=== PATIENT | male | born 1970 | race Caucasian/White ===

== ENCOUNTER 2018-05-18 08:35 | Emergency (ER) | payer BC ==
[2018-05-18] MEDS ORDERED: Sodium Chloride 0.9% 10 ML Syringe FLUSH PRN (08:55)
--- NOTE | 2018-05-18 09:01 | EDM.PDOC ---
ED HPI GENERAL MEDICAL PROBLEM - General Chief Complaint: Chest Pain Stated Complaint: [facility] Time Seen by Provider: 05/18/18 08:46 Source of Information: Reports: Patient History Limitations: Reports: No Limitations - History of Present Illness INITIAL COMMENTS - FREE TEXT/NARRATIVE: The patient presents by [facility] for chest pain. 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 He then developed sharp right upper chest pain. He had some shortness of breath with it and he got dizzy. He also had some tingling in his arms. This only lasted about 5 to 10 minutes. EMS gave him aspirin. He has no pain now. This has never happened to him before. He has no history of heart disease, HTN, or diabetes. He was told his cholesterol was high at one time. He does smoke. He has been working many hours lately. 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 Onset: Sudden Duration: Minutes: Location: Reports: Chest Quality: Reports: Sharp Severity: Moderate Improves with: Reports: None Worsens with: Reports: None Context: Reports: Activity (He was at work) Associated Symptoms: Reports: Chest Pain - Related Data Allergies Allergy/AdvReac Type Severity Reaction Status Date / Time cranberries Allergy Hives Uncoded 05/18/18 08:42 Home Meds: Home Meds . [No Known Home Meds] 05/18/18 [History] Past Medical History - Past Surgical History Musculoskeletal Surgical History: Reports: Arthroscopic Knee Other Musculoskeletal Surgeries/Procedures:: bilateral knees Social & Family History - Tobacco Use Smoking Status *Q: Current Every Day Smoker Years of Tobacco use: 30 Packs/Tins Daily: 0.5 - Caffeine Use Caffeine Use: Reports: Coffee, Energy Drinks - Recreational Drug Use Recreational Drug Use: No ED ROS GENERAL - Review of Systems Review Of Systems: See Below Constitutional: Reports: No Symptoms HEENT: Reports: No Symptoms Respiratory: Reports: Shortness of Breath Cardiovascular: Reports: Chest Pain, Other (dizziness) Endocrine: Reports: No Symptoms GI/Abdominal: Reports: No Symptoms : Reports: No Symptoms Musculoskeletal: Reports: No Symptoms ED EXAM, GENERAL - Physical Exam Exam: See Below Exam Limited By: No Limitations General Appearance: Alert, No Apparent Distress Ears: Normal External Exam Nose: Normal Inspection Head: Atraumatic, Normocephalic Neck: Normal Inspection Respiratory/Chest: No Respiratory Distress, Lungs Clear, Normal Breath Sounds Cardiovascular: Regular Rate, Rhythm, No Edema, No Murmur GI/Abdominal: Soft, Non-Tender, No Organomegaly, No Mass Back Exam: Normal Inspection Extremities: Normal Inspection EKG INTERPRETATION EKG Date: 05/18/18 Time: 08:40 Rhythm: NSR Rate (Beats/Min): 64 [place]: Normal P-Wave: Present QRS: Normal ST-T: Normal QT: Normal EKG Interpretation Comments: Q waves in the inferior leads Course - Vital Signs Last Recorded V/S: Last Vital Signs Temp 97.6 F 05/18/18 08:42 Pulse 70 05/18/18 08:42 Resp 13 05/18/18 08:42 BP 118/78 05/18/18 08:42 Pulse Ox 98 05/18/18 08:42 - Orders/Labs/Meds Orders: Active Orders 24 hr Category Date Time Status Cardiac Monitoring [RC] . DIRECTED Care 05/18/18 08:55 Active EKG 12 Lead [EKG Documentation Completion] [RC] STAT Care 05/18/18 08:41 Active EKG Documentation Completion [RC] ASDIRECTED Care 05/18/18 08:41 Active Peripheral IV Care [RC] . DIRECTED Care 05/18/18 08:56 Active Chest 1V Frontal [CR] Stat Exams 05/18/18 08:56 Taken Sodium Chloride 0.9% [Saline Flush] Med 05/18/18 08:55 Active 10 ml FLUSH ASDIRECTED PRN Peripheral IV Insertion Adult [OM.PC] Stat Oth 05/18/18 08:55 Ordered EKG 12 Lead [EK] Stat Ther 05/18/18 08:41 Ordered Medication Orders Sodium Chloride (Saline Flush) 10 ml FLUSH ASDIRECTED PRN PRN Reason: Keep Vein Open Last Admin: 05/18/18 09:00 Dose: 10 ml Labs: Laboratory Tests 05/18/18 05/18/18 Range/Units 09:18 09:18 WBC 12.51 H (4.23-9.07) K/mm3 RBC 5.06 (4.63-6.08) M/mm3 Hgb 15.4 (13.7-17.5) gm/L Hct 44.7 (40.1-51.0) % MCV 88.3 (79.0-92.2) fl MCH 30.4 (25.7-32.2) pg MCHC 34.5 (32.2-35.5) g/dl RDW Std Deviation 46.9 H (35.1-43.9) fL Plt Count 275 (163-337) K/mm3 MPV 9.6 (9.4-12.3) fl Neut % (Auto) 54.3 (34.0-67.9) % Lymph % (Auto) 37.0 (21.8-53.1) % Reeves % (Auto) 7.5 (5.3-12.2) % Eos % (Auto) 0.6 L (0.8-7.0) Baso % (Auto) 0.4 (0.1-1.2) % Neut # (Auto) 6.80 H (1.78-5.38) K/mm3 Lymph # (Auto) 4.63 H (1.32-3.57) K/mm3 Reeves # (Auto) 0.94 H (0.30-0.82) K/mm3 Eos # (Auto) 0.07 (0.04-0.54) K/mm3 Baso # (Auto) 0.05 (0.01-0.08) K/mm3 Sodium 136 (136-145) mEq/L Potassium 4.3 (3.5-5.1) mEq/L Chloride 103 (98-107) mEq/L Carbon Dioxide 24 (21-32) mEq/L Anion Gap 13.3 (5-15) BUN 10 (7-18) mg/dL Creatinine 1.0 (0.7-1.3) mg/dL Est Cr Clr Drug Dosing 116.33 mL/min Estimated GFR (MDRD) > 60 (>60) mL/min BUN/Creatinine Ratio 10.0 L (14-18) Glucose 104 (74-106) mg/dL Calcium 8.9 (8.5-10.1) mg/dL Total Bilirubin 0.4 (0.2-1.0) mg/dL AST 26 (15-37) U/L ALT 35 (16-63) U/L Alkaline Phosphatase 127 H (46-116) U/L Troponin I < 0.017 (0.00-0.056) ng/mL Total Protein 7.7 (6.4-8.2) g/dl Albumin 4.2 (3.4-5.0) g/dl Globulin 3.5 gm/dL Albumin/Globulin Ratio 1.2 (1-2) Meds: Medications Generic Name Dose Route Start Last Admin Trade Name Kev PRN Reason Stop Dose Admin Sodium Chloride 10 ml 05/18/18 08:55 05/18/18 09:00 Saline Flush FLUSH 10 ml ASDIRECTED PRN Administration Keep Vein Open - Re-Assessments/Exams Free Text/Narrative Re-Assessment/Exam: 05/18/18 09:04 I ordered an IV saline lock, EKG, CXR and labs. The patient was given aspirin by EMS. He is currently pain free. 05/18/18 11:10 His WBC was a little elevated at 12.51. His CMP looks good. His troponin was negative. He feels better. I will discharge him home. Departure - Departure Time of Disposition: 11:20 Disposition: Home, Self-Care 01 Condition: Good Clinical Impression: Atypical chest pain Referrals: Ute Mckeon MD [Primary Care Provider] - 1 Week Forms: ED Department Discharge Additional Instructions: Go home and rest. Follow up with your doctor. Please return if you are worse. - My Orders Last 24 Hours: My Active Orders 05/18/18 08:41 EKG 12 Lead [EKG Documentation Completion] [RC] STAT EKG Documentation Completion [RC] ASDIRECTED EKG 12 Lead [EK] Stat 05/18/18 08:55 Cardiac Monitoring [RC] . DIRECTED Sodium Chloride 0.9% [Saline Flush] 10 ml FLUSH ASDIRECTED PRN Peripheral IV Insertion Adult [OM.PC] Stat 05/18/18 08:56 Peripheral IV Care [RC] . DIRECTED Chest 1V Frontal [CR] Stat - Assessment/Plan Last 24 Hours: My Active Orders 05/18/18 08:41 EKG 12 Lead [EKG Documentation Completion] [RC] STAT EKG Documentation Completion [RC] ASDIRECTED EKG 12 Lead [EK] Stat 05/18/18 08:55 Cardiac Monitoring [RC] . DIRECTED Sodium Chloride 0.9% [Saline Flush] 10 ml FLUSH ASDIRECTED PRN Peripheral IV Insertion Adult [OM.PC] Stat 05/18/18 08:56 Peripheral IV Care [RC] . DIRECTED Chest 1V Frontal [CR] Stat
--- NOTE | 2018-05-20 08:30 | CR ---
Chest: Portable view of the chest was obtained. Comparison: No prior chest x-ray. Heart size and mediastinum are within normal limits for portable technique. Lungs are clear with no acute parenchymal densities. Bony structures are grossly intact. Impression: 1. Nothing acute is seen on portable chest x-ray. Diagnostic code #1
== END 2018-05-18 11:35 | disposition home or self-care (01) ==
LOC: JD.ED 08:35 → SUPCPDRO 08:35 → JD.ED 11:35
DX: R07.89 Other chest pain (principal); F17.210 Nicotine dependence, cigarettes, uncomplicated; Z91.018 Allergy to other foods
CPT/HCPCS: 36415; 71045; 80053; 84484; 85025; 93005; 99285; J7050; 93010; 99284-25

== ENCOUNTER 2021-08-22 02:02 | Emergency (ER) | payer BC ==
[2021-08-22] MEDS ORDERED: Nitroglycerin 0.4 MG Tab.SL SL PRN (02:14)
[2021-08-22] MEDS ORDERED: Aspirin 81 MG Tab.Chew PO ONE (02:14)
[2021-08-22] MEDS ORDERED: Sodium Chloride 0.9% 1,000 ML IV SCH (02:15)
--- NOTE | 2021-08-22 02:24 | EDM.PDOC ---
ED HPI GENERAL MEDICAL PROBLEM - General Chief Complaint: Chest Pain Stated Complaint: HEART ATTACK Time Seen by Provider: 08/22/21 02:02 - History of Present Illness INITIAL COMMENTS - FREE TEXT/NARRATIVE: 51-year-old male presents the emergency room with chest discomfort and left arm pain. Patient awoke about an hour ago with this severe pain down his left arm. The pain is somewhat subsided and is fairly mild at this point. The chest discomfort was fairly mild he has none at this time. He has had shortness of breath. No associated nausea or vomiting. Patient smokes roughly a pack a day. Patient had a stress test done 3 or 4 years ago that was reported to him as normal. 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 He has no family history of coronary artery disease. Left Chest Pain Score (Numeric/FACES): 2 - Related Data Allergies Allergy/AdvReac Type Severity Reaction Status Date / Time cranberries Allergy Severe Hives Uncoded 08/22/21 02:11 Home Meds: Home Meds . [No Known Home Meds] 05/18/18 [History] Past Medical History Cardiovascular History: Reports: Hypertension Musculoskeletal History: Reports: Fracture Endocrine/Metabolic History: Reports: Obesity/BMI 30+ - Past Surgical History Musculoskeletal Surgical History: Reports: Arthroscopic Knee, Other (See Below) Other Musculoskeletal Surgeries/Procedures:: bilateral knees, leg fx with rods placed Social & Family History - Tobacco Use Tobacco Use Status *Q: Current Every Day Tobacco User Years of Tobacco use: 20 Packs/Tins Daily: 0.5 - Caffeine Use Caffeine Use: Reports: Coffee - Recreational Drug Use Recreational Drug Use: No ED ROS GENERAL - Review of Systems Review Of Systems: See Below Constitutional: Reports: No Symptoms HEENT: Reports: No Symptoms Respiratory: Reports: No Symptoms Cardiovascular: Reports: Chest Pain Endocrine: Reports: No Symptoms GI/Abdominal: Reports: No Symptoms : Reports: No Symptoms Musculoskeletal: Reports: No Symptoms Skin: Reports: No Symptoms Neurological: Reports: No Symptoms ED EXAM, GENERAL - Physical Exam Exam: See Below Exam Limited By: No Limitations General Appearance: Alert, No Apparent Distress Head: Atraumatic, Normocephalic Neck: Normal Inspection, Supple, Non-Tender, Full Range of Motion Respiratory/Chest: No Respiratory Distress, Lungs Clear, Normal Breath Sounds Cardiovascular: Regular Rate, Rhythm, No Edema, No Murmur GI/Abdominal: Normal Bowel Sounds, Soft, Non-Tender, Other (Obese) Back Exam: Normal Inspection Extremities: Normal Inspection, No Pedal Edema #1 Interpretation EKG Date: 08/22/21 Rhythm: NSR Rate (Beats/Min): 69 [place]: Normal P-Wave: Present QRS: Other (Q waves in aVF borderline in lead III) ST-T: Normal QT: Normal Comparison: No Change (No significant change noted from May 18, 2018) EKG Interpretation Comments: Abnormal EKG Course - Vital Signs Last Recorded V/S: Last Vital Signs Temp 35.8 C L 08/22/21 02:07 Pulse 71 08/22/21 02:07 Resp 20 08/22/21 02:07 BP 145/75 H 08/22/21 02:36 Pulse Ox 99 08/22/21 02:07 - Orders/Labs/Meds Orders: Active Orders 24 hr Category Date Time Status Chest 1V Frontal [CR] Stat Exams 08/22/21 02:15 Taken Nitroglycerin [Nitrostat] Med 08/22/21 02:14 Active 0.4 mg SL Q5M PRN Sodium Chloride 0.9% [Normal Saline] 1,000 ml Med 08/22/21 02:15 Active IV ASDIRECTED Medication Orders Sodium Chloride (Normal Saline) 1,000 mls @ 50 mls/hr IV ASDIRECTED ERICKA Last Admin: 08/22/21 02:37 Dose: 50 mls/hr Documented by: JESÚS Nitroglycerin (Nitroglycerin 0.4 Mg Tab.Sl) 0.4 mg SL Q5M PRN PRN Reason: Chest Pain Last Admin: 08/22/21 02:36 Dose: 0.4 mg Documented by: JESÚS Labs: Laboratory Tests 08/22/21 08/22/21 08/22/21 Range/Units 02:09 02:09 02:09 WBC 14.00 H (4.23-9.07) K/mm3 RBC 4.87 (4.63-6.08) M/mm3 Hgb 15.2 (13.7-17.5) gm/dl Hct 44.4 (40.1-51.0) % MCV 91.2 (79.0-92.2) fl MCH 31.2 (25.7-32.2) pg MCHC 34.2 (32.2-35.5) g/dl RDW Std Deviation 47.6 H (35.1-43.9) fL Plt Count 297 (163-337) K/mm3 MPV 9.6 (9.4-12.3) fl Neut % (Auto) 45.4 (34.0-67.9) % Lymph % (Auto) 43.3 (21.8-53.1) % [place] % (Auto) 9.8 (5.3-12.2) % Eos % (Auto) 1.1 (0.8-7.0) Baso % (Auto) 0.2 (0.1-1.2) % Neut # (Auto) 6.36 H (1.78-5.38) K/mm3 Lymph # (Auto) 6.06 H (1.32-3.57) K/mm3 [place] # (Auto) 1.37 H (0.30-0.82) K/mm3 Eos # (Auto) 0.15 (0.04-0.54) K/mm3 Baso # (Auto) 0.03 (0.01-0.08) K/mm3 Manual Slide Review Normal smear PT 10.0 (9.7-12.0) SECONDS INR < 0.93 APTT 26.5 (21.7-31.4) SECONDS Sodium 136 (136-145) mEq/L Potassium 3.5 (3.5-5.1) mEq/L Chloride 104 (98-107) mEq/L Carbon Dioxide 24 (21-32) mEq/L Anion Gap 11.5 (5-15) BUN 16 (7-18) mg/dL Creatinine 1.0 (0.7-1.3) mg/dL Est Cr Clr Drug Dosing 109.71 mL/min Estimated GFR (MDRD) > 60 (>60) mL/min BUN/Creatinine Ratio 16.0 (14-18) Glucose 139 H (70-99) mg/dL Calcium 8.4 L (8.5-10.1) mg/dL Total Bilirubin 0.3 (0.2-1.0) mg/dL AST 19 (15-37) U/L ALT 39 (16-63) U/L Alkaline Phosphatase 119 H (46-116) U/L Troponin I < 0.017 (0.00-0.056) ng/mL Total Protein 7.5 (6.4-8.2) g/dl Albumin 3.9 (3.4-5.0) g/dl Globulin 3.6 gm/dL Albumin/Globulin Ratio 1.1 (1-2) SARS-CoV-2 RNA (TRACY) (NEGATIVE) 08/22/21 08/22/21 Range/Units 02:19 04:03 WBC (4.23-9.07) K/mm3 RBC (4.63-6.08) M/mm3 Hgb (13.7-17.5) gm/dl Hct (40.1-51.0) % MCV (79.0-92.2) fl MCH (25.7-32.2) pg MCHC (32.2-35.5) g/dl RDW Std Deviation (35.1-43.9) fL Plt Count (163-337) K/mm3 MPV (9.4-12.3) fl Neut % (Auto) (34.0-67.9) % Lymph % (Auto) (21.8-53.1) % [place] % (Auto) (5.3-12.2) % Eos % (Auto) (0.8-7.0) Baso % (Auto) (0.1-1.2) % Neut # (Auto) (1.78-5.38) K/mm3 Lymph # (Auto) (1.32-3.57) K/mm3 [place] # (Auto) (0.30-0.82) K/mm3 Eos # (Auto) (0.04-0.54) K/mm3 Baso # (Auto) (0.01-0.08) K/mm3 Manual Slide Review PT (9.7-12.0) SECONDS INR APTT (21.7-31.4) SECONDS Sodium (136-145) mEq/L Potassium (3.5-5.1) mEq/L Chloride (98-107) mEq/L Carbon Dioxide (21-32) mEq/L Anion Gap (5-15) BUN (7-18) mg/dL Creatinine (0.7-1.3) mg/dL Est Cr Clr Drug Dosing mL/min Estimated GFR (MDRD) (>60) mL/min BUN/Creatinine Ratio (14-18) Glucose (70-99) mg/dL Calcium (8.5-10.1) mg/dL Total Bilirubin (0.2-1.0) mg/dL AST (15-37) U/L ALT (16-63) U/L Alkaline Phosphatase (46-116) U/L Troponin I < 0.017 (0.00-0.056) ng/mL Total Protein (6.4-8.2) g/dl Albumin (3.4-5.0) g/dl Globulin gm/dL Albumin/Globulin Ratio (1-2) SARS-CoV-2 RNA (TRACY) Negative (NEGATIVE) Meds: Medications Generic Name Dose Route Start Last Admin Trade Name Freq PRN Reason Stop Dose Admin Sodium Chloride 1,000 mls @ 50 mls/hr 08/22/21 02:15 08/22/21 02:37 Normal Saline IV 50 mls/hr ASDIRECTED ERICKA Administration Nitroglycerin 0.4 mg 08/22/21 02:14 08/22/21 02:36 Nitroglycerin 0.4 Mg Tab.Sl SL 0.4 mg Q5M PRN Administration Chest Pain Discontinued Medications Generic Name Dose Route Start Last Admin Trade Name Freq PRN Reason Stop Dose Admin Aspirin 324 mg 08/22/21 02:14 08/22/21 02:36 Aspirin 81 Mg Tab.Chew PO 08/22/21 02:15 324 mg ONETIME ONE Administration - Re-Assessments/Exams Free Text/Narrative Re-Assessment/Exam: 08/22/21 03:43 The patient's work-up is negative his chest pain is absolutely gone. He did get a single nitroglycerin however his pain was improving at that time. Check a s econd troponin very shortly. Unless his troponin turns up positive his heart score is 3 one-point for his age 1 point for a moderate suspicion history and one point for risk factors namely obesity and smoking we have discussed the implications of this and he would like for us to recheck a troponin at the appropriate time. 08/22/21 04:50 Second troponin is also below our detectable levels. Patient would like to be discharged home Departure - Departure Time of Disposition: 04:52 Disposition: Home, Self-Care 01 Clinical Impression: Left arm pain, Chest pain Referrals: Kojo Cristina MD [Primary Care Provider] - Forms: ED Department Discharge Additional Instructions: Return to the emergency room with any questions problems or worsening symptoms. Follow-up with your regular healthcare provider in the next week or so and discuss if any further testing needs to take place. Also discuss if you should be taking a daily aspirin. Please quit smoking. Sepsis Event Note (ED) - Evaluation Sepsis Screening Result: No Definite Risk - Focused Exam Vital Signs: Vital Signs Temp Pulse Resp BP BP Pulse Ox 08/22/21 02:36 145/75 H 08/22/21 02:07 35.8 C L 71 20 151/97 H 99 - My Orders Last 24 Hours: My Active Orders 08/22/21 02:14 Nitroglycerin [Nitrostat] 0.4 mg SL Q5M PRN 08/22/21 02:15 Chest 1V Frontal [CR] Stat Sodium Chloride 0.9% [Normal Saline] 1,000 ml IV ASDIRECTED - Assessment/Plan Last 24 Hours: My Active Orders 08/22/21 02:14 Nitroglycerin [Nitrostat] 0.4 mg SL Q5M PRN 08/22/21 02:15 Chest 1V Frontal [CR] Stat Sodium Chloride 0.9% [Normal Saline] 1,000 ml IV ASDIRECTED
--- NOTE | 2021-08-22 08:26 | CR ---
Chest: Portable view of the chest was obtained. Comparison: Prior chest x-ray of 05/18/18. Heart size and mediastinum are normal. Lung markings are slightly increased which appear to be chronic. No acute parenchymal change is seen. No acute osseous abnormality is appreciated. Impression: 1. Nothing acute is seen on portable chest x-ray. Diagnostic code #1
== END 2021-08-22 05:13 | disposition home or self-care (01) ==
LOC: JD.ED 02:02
DX: R07.89 Other chest pain (principal); M79.602 Pain in left arm; I10 Essential (primary) hypertension; R94.31 Abnormal electrocardiogram [ECG] [EKG]; E66.9 Obesity, unspecified; Z68.35 Body mass index [BMI] 35.0-35.9, adult; Z72.0 Tobacco use; Z91.018 Allergy to other foods; Z20.822 Contact with and (suspected) exposure to COVID-19
CPT/HCPCS: 36415; 71045; 80053; 84484; 85025; 85610; 85730; 87635; 99285; A9270; J7030; U0002

== ENCOUNTER 2022-01-13 12:42 | Emergency (ER) | payer BC ==
[2022-01-13 14:18] LABS: CORONAVIRUS COVID-19 NAA POSITIVE (NEGATIVE)
== END 2022-01-13 15:35 | disposition home or self-care (01) ==
LOC: JD.ED 12:42
DX: U07.1 COVID-19 (principal); R42 Dizziness and giddiness; I10 Essential (primary) hypertension; I45.10 Unspecified right bundle-branch block; E66.9 Obesity, unspecified; Z68.36 Body mass index [BMI] 36.0-36.9, adult; Z87.891 Personal history of nicotine dependence; Z91.018 Allergy to other foods
CPT/HCPCS: 0240U; 36415; 36600; 70450; 71045; 80053; 82375; 82803; 82947; 84484; 85025; 85379; 86140; 93005; 99284; 93010; 99285

== ENCOUNTER 2022-01-30 10:45 | Emergency (ER) | payer OTHER, BC ==
[2022-01-30] MEDS ORDERED: LORazepam 1 MG Tab PO ONE (11:38)
[2022-01-30] MEDS ORDERED: Albuterol/Ipratropium 3.0-0.5 MG/3 ML Neb Soln NEB ONE (11:39)
[2022-01-30] MEDS ORDERED: Aspirin 81 MG Tab.Chew PO ONE (12:10)
[2022-01-30] MEDS ORDERED: LORazepam 2 MG/ML SDV IVPUSH ONE (12:11)
== END 2022-01-30 14:00 | disposition home or self-care (01) ==
LOC: JD.ED 10:45
DX: F45.8 Other somatoform disorders (principal); I10 Essential (primary) hypertension; E66.9 Obesity, unspecified; Z87.891 Personal history of nicotine dependence; Z91.048 Other nonmedicinal substance allergy status; Z68.35 Body mass index [BMI] 35.0-35.9, adult
CPT/HCPCS: 36415; 36600; 71046; 80053; 82375; 82803; 84484; 85025; 85379; 86140; 93005; 94640; 99284; A9270; J7620-GY

== ENCOUNTER 2022-02-05 09:07 | Emergency (ER) | payer OTHER, BC ==
[2022-02-05] MEDS ORDERED: LORazepam 2 MG/ML SDV IVPUSH ONE (09:39)
[2022-02-05] MEDS ORDERED: Metoclopramide 10 MG/2 ML SDV IVPUSH ONE (09:40)
[2022-02-05] MEDS ORDERED: HYDROmorphone 0.5 MG/0.5 ML Syringe IVPUSH ONE ×2 (09:40→12:19)
[2022-02-05] MEDS ORDERED: Dextrose 5%-0.9% NaCl 1,000 ML IV SCH (09:45)
[2022-02-05] MEDS ORDERED: Aspirin 81 MG Tab.Chew PO ONE (09:58)
[2022-02-05] MEDS ORDERED: Sodium Chloride 0.9% 10 ML Syringe FLUSH ONE (11:39)
[2022-02-05] MEDS ORDERED: Iopamidol 612 MG/ML 100 ML Bottle IVPUSH ONE (11:39)
== END 2022-02-05 14:05 | disposition home or self-care (01) ==
LOC: JD.ED 09:07
DX: R09.1 Pleurisy (principal); F41.0 Panic disorder [episodic paroxysmal anxiety]; I10 Essential (primary) hypertension; K20.90 Esophagitis, unspecified without bleeding; J45.909 Unspecified asthma, uncomplicated; E66.9 Obesity, unspecified; Z86.16 Personal history of COVID-19; Z91.048 Other nonmedicinal substance allergy status; Z87.891 Personal history of nicotine dependence; Z68.36 Body mass index [BMI] 36.0-36.9, adult
CPT/HCPCS: 36415; 71045; 71260; 80053; 80307; 83735; 83880; 84484; 85025; 85379; 85610; 86140; 93005; 96374; 96375; 96376; 99285; A9270; J1170; J2060; J2765; J7042; Q9967; 93010

== ENCOUNTER 2022-09-18 08:47 | Emergency (ER) | payer BC ==
[2022-09-18] MEDS: Sodium Chloride 0.9% 10 ML Syringe FLUSH PRN ×2 (09:03→11:59)
[2022-09-18] MEDS ORDERED: HYDROmorphone 1 MG/ML Syringe IVPUSH ONE (10:16)
[2022-09-18] MEDS ORDERED: Ketorolac 30 MG/ML SDV IVPUSH ONE (11:13)
[2022-09-18] MEDS ORDERED: Sodium Chloride 0.9% 10 ML Syringe FLUSH PRN (11:26)
[2022-09-18] MEDS ORDERED: Iopamidol 612 MG/ML 100 ML Bottle IVPUSH ONE (11:26)
[2022-09-18] MEDS ORDERED: Iopamidol 612 MG/ML 50 ML SDV IVPUSH ONE (11:26)
[2022-09-18] MEDS ORDERED: Sodium Chloride 0.9% 45 ML IV SCH (11:30)
[2022-09-18] MEDS ORDERED: Iopamidol 755 Mg/ML 100 ML Bottle IVPUSH ONE (11:42)
== END 2022-09-18 13:18 | disposition home or self-care (01) ==
LOC: JD.ED 08:47
DX: R07.89 Other chest pain (principal); J45.909 Unspecified asthma, uncomplicated; I10 Essential (primary) hypertension; E66.9 Obesity, unspecified; Z68.36 Body mass index [BMI] 36.0-36.9, adult; Z91.018 Allergy to other foods; Z79.899 Other long term (current) drug therapy; Z86.16 Personal history of COVID-19; Z87.891 Personal history of nicotine dependence
CPT/HCPCS: 36415; 71045; 71275; 80053; 84484; 85025; 85379; 93005; 96374; 96375; 99285; J1170; J1885; J3490; Q9967

== ENCOUNTER 2024-06-15 12:44 | Emergency (ER) | payer BC ==
[2024-06-15 14:57] LABS: BASOPHILS PERCENT AUTO 0.5 % (0.0-1.0); EOSINOPHILS ABSOLUTE AUTO 0.1 K/mm3 (0.0-0.4); EOSINOPHILS PERCENT AUTO 1.2 % (0.0-6.0); HEMATOCRIT 42.5 % (42.0-52.0); HEMOGLOBIN 14.6 gm/dl (14.0-18.0); IMMATURE GRAN ABSOLUTE AUTO 0.01 K/mm3 (0.00-0.05); IMMATURE GRAN PERCENT AUTO 0.1 % (0.0-0.4); LYMPHOCYTES ABSOLUTE AUTO 3.4 K/mm3 (1.0-4.8); LYMPHOCYTES PERCENT AUTO 41.4 % (24.0-44.0); MEAN CORPUSCULAR HEMOGLOBIN 31.3 pg (28.0-32.0); MEAN CORPUSCULAR HGB CONC 34.4 g/dl (32.0-36.0); MEAN PLATELET VOLUME 9.2 fl (9.4-12.4); MONOCYTES ABSOLUTE AUTO 0.6 K/mm3 (0.0-0.8); MONOCYTES PERCENT AUTO 7.9 % (0.0-8.0); NEUTROPHILS PERCENT AUTO 48.9 % (41.0-71.0); PLATELET COUNT,PLT 250 K/mm3 (150-400); RED BLOOD CELL COUNT 4.67 M/mm3 (4.52-5.90)
[2024-06-15 15:19] LABS: A/G RATIO 1.3 (1-2); ALBUMIN 4.1 g/dl (3.4-5.0); ANION GAP 13.2 (5-15); BILIRUBIN TOTAL 0.4 mg/dL (0.2-1.0); BUN/CREATININE RATIO 12.2 (14-18); CALCIUM 8.8 mg/dL (8.5-10.1); CREATININE 0.9 mg/dL (0.7-1.3); EST CRCL DRUG DOSING (CG) 117.88 mL/min; POTASSIUM,K 4.2 mEq/L (3.5-5.1); PROTEIN TOTAL,TP 7.3 g/dl (6.4-8.2)
== END 2024-06-15 16:03 | disposition home or self-care (01) ==
LOC: JD.ED 12:44
DX: Z77.098 Contact with and (suspected) exposure to other hazardous, chiefly nonmedicinal, chemicals (principal); I10 Essential (primary) hypertension; J45.909 Unspecified asthma, uncomplicated; F17.210 Nicotine dependence, cigarettes, uncomplicated; E66.9 Obesity, unspecified; Z68.35 Body mass index [BMI] 35.0-35.9, adult; Z86.16 Personal history of COVID-19; Z88.5 Allergy status to narcotic agent; Z91.018 Allergy to other foods
CPT/HCPCS: 36415; 80053; 82375; 85025; 99283; 99284

== ENCOUNTER 2024-08-12 10:32 | Day surgery (SDC) | payer BC ==
[2024-08-12] MEDS ORDERED: Propofol 200 MG/20 ML SDV ONE ×5 (10:54→12:12)
[2024-08-12] MEDS ORDERED: Midazolam 1 MG/ML 2 ML SDV ONE (10:54)
[2024-08-12] MEDS ORDERED: fentaNYL 250 MCG/5 ML SDV ONE (10:54)
[2024-08-12] MEDS ORDERED: Ketamine 200 MG/20 ML MDV ONE (10:54)
[2024-08-12] MEDS ORDERED: Lidocaine 1% PF 2 ML SDV ONE ×2 (10:55)
[2024-08-12] MEDS ORDERED: Lidocaine 1% 4 ML ONE (10:55)
[2024-08-12] MEDS ORDERED: Rocuronium 50 MG/5 ML Vial ONE (10:55)
[2024-08-12] MEDS: Lactated Ringers 1,000 ML IV SCH (11:05)
[2024-08-12] MEDS ORDERED: ceFAZolin 2 GM Vial ONE (11:30)
[2024-08-12] MEDS: Bupivacaine 0.5% 30 ML SDV ONE (11:37)
[2024-08-12] MEDS: EPINEPHrine 1 MG/ML SDV ONE (11:37)
[2024-08-12] MEDS ORDERED: Dexamethasone 4 MG/ML 5 ML MDV ONE (11:51)
[2024-08-12] MEDS ORDERED: Ondansetron 4 MG/2 ML SDV ONE (11:51)
[2024-08-12] MEDS ORDERED: Sugammadex Sodium 200 MG/2 ML VIAL IV ONE ×2 (12:10→12:25)
[2024-08-12] MEDS: fentaNYL 100 MCG/2 ML SDV IVPUSH PRN (13:05)
[2024-08-12] MEDS: Ketorolac 30 MG/ML SDV IVPUSH ONE (13:25)
[2024-08-12] MEDS: traMADol 50 MG Tab PO SCH (13:48)
[2024-08-12] MEDS: oxyCODONE 5 MG Tab PO ONE (15:07)
== END 2024-08-12 15:45 | disposition home or self-care (01) ==
LOC: JD.SDS 10:32
PROVIDERS: ATTEND Surgery
DX: K42.9 Umbilical hernia without obstruction or gangrene (principal); K21.9 Gastro-esophageal reflux disease without esophagitis; I10 Essential (primary) hypertension; G47.33 Obstructive sleep apnea (adult) (pediatric); E66.9 Obesity, unspecified; F17.210 Nicotine dependence, cigarettes, uncomplicated; Z68.34 Body mass index [BMI] 34.0-34.9, adult; Z91.018 Allergy to other foods; Z88.8 Allergy status to other drugs, medicaments and biological substances; Z79.899 Other long term (current) drug therapy
CPT/HCPCS: 49591; A9270; C1781; J0171; J0665; J0690; J1100; J1885; J2250; J2405; J2704; J3010; J3490; J7120; 00752

== ENCOUNTER 2024-10-22 06:03 | Day surgery (SDC) | payer BC ==
[2024-10-22] MEDS ORDERED: Sodium Chloride 0.9% 10 ML Syringe FLUSH PRN (06:24)
[2024-10-22] MEDS: Lactated Ringers 1,000 ML IV SCH (06:35)
[2024-10-22] MEDS ORDERED: Lidocaine 1% 5 ML VIAL ONE (07:03)
[2024-10-22] MEDS ORDERED: Ondansetron 4 MG/2 ML SDV ONE (07:03)
[2024-10-22] MEDS ORDERED: Dexamethasone 4 MG/ML 5 ML MDV ONE (07:03)
[2024-10-22] MEDS ORDERED: Propofol 200 MG/20 ML SDV ONE ×3 (07:03→07:43)
[2024-10-22] MEDS ORDERED: fentaNYL 100 MCG/2 ML SDV ONE (07:03)
[2024-10-22] MEDS ORDERED: dexmedeTOMIDine HCl 200 MCG/2 ML SDV ONE (07:30)
[2024-10-22] MEDS: Bupivacaine 0.25% 10 ML SDV ONE (09:00)
[2024-10-22] MEDS ORDERED: Sodium Chloride 0.9% 10 ML Syringe FLUSH SCH (09:00)
== END 2024-10-22 09:05 | disposition home or self-care (01) ==
LOC: JD.SDS 06:03
PROVIDERS: ATTEND Surgery
DX: Z12.11 Encounter for screening for malignant neoplasm of colon (principal); K57.30 Diverticulosis of large intestine without perforation or abscess without bleeding; D12.3 Benign neoplasm of transverse colon; D12.5 Benign neoplasm of sigmoid colon; K62.1 Rectal polyp; C77.0 Secondary and unspecified malignant neoplasm of lymph nodes of head, face and neck; C80.1 Malignant (primary) neoplasm, unspecified; K63.5 Polyp of colon; J45.909 Unspecified asthma, uncomplicated; I10 Essential (primary) hypertension; K21.9 Gastro-esophageal reflux disease without esophagitis; Z79.899 Other long term (current) drug therapy; Z88.8 Allergy status to other drugs, medicaments and biological substances
CPT/HCPCS: 38500; 45380; 45385; J0665; J1100; J2405; J2704; J3010; J7120; 00811; J3490

== ENCOUNTER 2024-11-03 13:05 | Day surgery (SDC) | payer BC ==
[2024-11-03] MEDS ORDERED: Propofol 200 MG/20 ML SDV ONE (13:30)
[2024-11-03] MEDS: Lactated Ringers 1,000 ML IV SCH (13:30)
== END 2024-11-03 15:55 | disposition home or self-care (01) ==
LOC: JD.SDS 13:05
PROVIDERS: ATTEND Surgery
DX: D02.0 Carcinoma in situ of larynx (principal); K29.80 Duodenitis without bleeding; I10 Essential (primary) hypertension; K21.9 Gastro-esophageal reflux disease without esophagitis; F17.210 Nicotine dependence, cigarettes, uncomplicated; Z88.8 Allergy status to other drugs, medicaments and biological substances; Z91.018 Allergy to other foods; Z79.899 Other long term (current) drug therapy
CPT/HCPCS: 43239; J2704; J7120; 00731

== ENCOUNTER 2025-01-07 20:22 | Emergency (ER) | payer BC ==
[2025-01-07 21:52] LABS: BASOPHILS PERCENT AUTO 0.2 % (0.0-1.0); EOSINOPHILS PERCENT AUTO 0.7 % (0.0-6.0); HEMATOCRIT 37.7 % (42.0-52.0); HEMOGLOBIN 13.1 gm/dl (14.0-18.0); IMMATURE GRAN ABSOLUTE AUTO 0.01 K/mm3 (0.00-0.05); IMMATURE GRAN PERCENT AUTO 0.2 % (0.0-0.4); LYMPHOCYTES PERCENT AUTO 17.9 % (24.0-44.0); MEAN CORPUSCULAR HEMOGLOBIN 30.8 pg (28.0-32.0); MEAN CORPUSCULAR HGB CONC 34.7 g/dl (32.0-36.0); MEAN CORPUSCULAR VOLUME 88.7 fl (83.0-99.0); MEAN PLATELET VOLUME 8.4 fl (9.4-12.4); MONOCYTES ABSOLUTE AUTO 0.6 K/mm3 (0.0-0.8); MONOCYTES PERCENT AUTO 10.9 % (0.0-8.0); NEUTROPHILS PERCENT AUTO 70.1 % (41.0-71.0); PLATELET COUNT,PLT 252 K/mm3 (150-400); RED BLOOD CELL COUNT 4.25 M/mm3 (4.52-5.90)
[2025-01-07] MEDS: Sodium Chloride 0.9% 2,000 ML IV ONE (21:54)
[2025-01-07 22:16] LABS: A/G RATIO 1.1 (1-2); ALBUMIN 3.8 g/dl (3.4-5.0); ANION GAP 10.8 (5-15); BILIRUBIN TOTAL 0.5 mg/dL (0.2-1.0); BUN/CREATININE RATIO 13.3 (14-18); CALCIUM 8.6 mg/dL (8.5-10.1); CREATININE 0.9 mg/dL (0.7-1.3); EST CRCL DRUG DOSING (CG) 117.88 mL/min; MAGNESIUM 1.6 mg/dL (1.8-2.4); POTASSIUM,K 3.8 mEq/L (3.5-5.1); PROTEIN TOTAL,TP 7.2 g/dl (6.4-8.2)
[2025-01-08] MEDS: Ondansetron 4 MG/2 ML SDV IVPUSH ONE (00:25)
[2025-01-08] MEDS: Acetaminophen/HYDROcodone 108-2.5 MG/5 ML Soln 15 ML UD Cup PO ONE (00:25)
[2025-01-08] MEDS: Ketorolac 30 MG/ML SDV IVPUSH ONE (01:46)
[2025-01-08] MEDS: diphenhydrAMINE 50 MG/ML SDV IVPUSH ONE (01:46)
== END 2025-01-08 01:40 | disposition home or self-care (01) ==
LOC: JD.ED 20:22
DX: R20.2 Paresthesia of skin (principal); E83.42 Hypomagnesemia; I10 Essential (primary) hypertension; J45.909 Unspecified asthma, uncomplicated; E66.9 Obesity, unspecified; Z68.36 Body mass index [BMI] 36.0-36.9, adult; Z86.16 Personal history of COVID-19; Z88.5 Allergy status to narcotic agent; Z91.018 Allergy to other foods; Z79.899 Other long term (current) drug therapy
CPT/HCPCS: 36415; 71045; 80053; 82607; 83540; 83605; 83735; 84484; 85025; 87428; 93005; 96361; 96365; 96375; 99284; A9270; J1200; J1885; J2405; J3475; J7030

== ENCOUNTER 2025-01-08 10:05 | Emergency (ER) | payer BC | END 2025-01-08 12:45 | disposition home or self-care (01) | LOC: JD.ED 10:05 | DX: T28.0XXA Burn of mouth and pharynx, initial encounter (principal); C44.92 Squamous cell carcinoma of skin, unspecified; R59.0 Localized enlarged lymph nodes; I10 Essential (primary) hypertension; E78.00 Pure hypercholesterolemia, unspecified; E66.9 Obesity, unspecified; Z86.16 Personal history of COVID-19; Z79.899 Other long term (current) drug therapy; Y84.2 Radiological procedure and radiotherapy as the cause of abnormal reaction of the patient, or of later complication, without mention of misadventure at the time of the procedure; Z88.5 Allergy status to narcotic agent; Z91.018 Allergy to other foods; Z68.36 Body mass index [BMI] 36.0-36.9, adult | CPT/HCPCS: 99282 ==

== ENCOUNTER 2025-04-22 07:34 | Observation (INO) | payer BC ==
[2025-04-22 07:59] LABS: BASOPHILS PERCENT AUTO 0.2 % (0.0-1.0); EOSINOPHILS PERCENT AUTO 0.7 % (0.0-6.0); HEMATOCRIT 32.7 % (42.0-52.0); HEMOGLOBIN 11.3 gm/dl (14.0-18.0); IMMATURE GRAN ABSOLUTE AUTO 0.01 K/mm3 (0.00-0.05); IMMATURE GRAN PERCENT AUTO 0.2 % (0.0-0.4); LYMPHOCYTES ABSOLUTE AUTO 0.6 K/mm3 (1.0-4.8); LYMPHOCYTES PERCENT AUTO 14.5 % (24.0-44.0); MEAN CORPUSCULAR HGB CONC 34.6 g/dl (32.0-36.0); MEAN CORPUSCULAR VOLUME 95.6 fl (83.0-99.0); MEAN PLATELET VOLUME 9.1 fl (9.4-12.4); MONOCYTES ABSOLUTE AUTO 0.6 K/mm3 (0.0-0.8); MONOCYTES PERCENT AUTO 13.6 % (0.0-8.0); NEUTROPHILS ABSOLUTE AUTO 3.1 K/mm3 (1.8-7.7); NEUTROPHILS PERCENT AUTO 70.8 % (41.0-71.0); PLATELET COUNT,PLT 253 K/mm3 (150-400); RED BLOOD CELL COUNT 3.42 M/mm3 (4.52-5.90); WHITE BLOOD CELL COUNT,WBC 4.41 K/mm3 (3.9-11.3)
[2025-04-22] MEDS: fentaNYL 100 MCG/2 ML SDV IVPUSH PRN (08:09)
[2025-04-22] MEDS: Ondansetron 4 MG/2 ML SDV IVPUSH ONE ×2 (08:13→08:48)
[2025-04-22] MEDS: Sodium Chloride 0.9% 1,000 ML IV ONE (08:21)
[2025-04-22 08:23] LABS: ALBUMIN 3.8 g/dl (3.4-5.0); BILIRUBIN TOTAL 0.4 mg/dL (0.2-1.0); CALCIUM 9.2 mg/dL (8.5-10.1); CREATININE 0.7 mg/dL (0.7-1.3); EST CRCL DRUG DOSING (CG) 149.83 mL/min; PROTEIN TOTAL,TP 7.5 g/dl (6.4-8.2)
[2025-04-22 08:33] LABS: APPEARANCE,URINE CLEAR (Clear); BILIRUBIN,URINE NEGATIVE (Negative); COLOR,URINE YELLOW (Yellow); GLUCOSE,URINE NEGATIVE (Negative); KETONES,URINE NEGATIVE (Negative); LEUKOCYTE ESTERASE,URINE NEGATIVE (Negative); NITRITE,URINE NEGATIVE (Negative); OCCULT BLOOD,URINE NEGATIVE (Negative); PROTEIN,URINE NEGATIVE (Negative); UROBILINOGEN,URINE 0.2 (0.2-1.0)
[2025-04-22] MEDS: Alum Hydrox/Mag Hydrox/Simeth 30 ML, Lidocaine 2% 15 ML PO ONE (08:39)
[2025-04-22] MEDS: Sodium Chloride 0.9% 10 ML Syringe FLUSH PRN ×2 (08:51→10:03)
[2025-04-22] MEDS: Iopamidol 755 Mg/ML 100 ML Bottle IVPUSH ONE ×2 (10:03→17:19)
[2025-04-22] MEDS: Sodium Chloride 0.9% 100 ML IV SCH (10:03)
[2025-04-22] MEDS: fentaNYL 100 MCG/2 ML SDV IVPUSH ONE (14:13)
[2025-04-22 14:17] LABS: BASOPHILS PERCENT AUTO 0.1 % (0.0-1.0); EOSINOPHILS PERCENT AUTO 0.1 % (0.0-6.0); HEMATOCRIT 33.7 % (42.0-52.0); HEMOGLOBIN 11.3 gm/dl (14.0-18.0); IMMATURE GRAN ABSOLUTE AUTO 0.03 K/mm3 (0.00-0.05); IMMATURE GRAN PERCENT AUTO 0.3 % (0.0-0.4); LYMPHOCYTES ABSOLUTE AUTO 0.7 K/mm3 (1.0-4.8); LYMPHOCYTES PERCENT AUTO 7.5 % (24.0-44.0); MEAN CORPUSCULAR HEMOGLOBIN 32.6 pg (28.0-32.0); MEAN CORPUSCULAR HGB CONC 33.5 g/dl (32.0-36.0); MEAN CORPUSCULAR VOLUME 97.1 fl (83.0-99.0); MEAN PLATELET VOLUME 9.1 fl (9.4-12.4); MONOCYTES ABSOLUTE AUTO 0.8 K/mm3 (0.0-0.8); MONOCYTES PERCENT AUTO 8.8 % (0.0-8.0); NEUTROPHILS ABSOLUTE AUTO 7.3 K/mm3 (1.8-7.7); NEUTROPHILS PERCENT AUTO 83.2 % (41.0-71.0); PLATELET COUNT,PLT 245 K/mm3 (150-400); RED BLOOD CELL COUNT 3.47 M/mm3 (4.52-5.90); WHITE BLOOD CELL COUNT,WBC 8.79 K/mm3 (3.9-11.3)
[2025-04-22] MEDS ORDERED: Sodium Chloride 0.9% 100 ML IV SCH (17:30)
[2025-04-22] MEDS ORDERED: Midazolam 1 MG/ML 2 ML SDV ONE ×2 (18:23→19:19)
[2025-04-22] MEDS ORDERED: Ropivacaine 0.5% 5 MG/ML 30 ML SDV ONE (18:24)
[2025-04-22] MEDS ORDERED: fentaNYL 250 MCG/5 ML SDV ONE (19:01)
[2025-04-22] MEDS ORDERED: Rocuronium 50 MG/5 ML Vial ONE ×2 (19:05→20:11)
[2025-04-22] MEDS ORDERED: Ketamine 200 MG/20 ML MDV ONE (19:05)
[2025-04-22] MEDS ORDERED: Lidocaine 1% 5 ML VIAL ONE (19:05)
[2025-04-22] MEDS ORDERED: Glycopyrrolate 0.2 MG/ML 2 ML SDV ONE (19:05)
[2025-04-22] MEDS ORDERED: dexmedeTOMIDine HCl 200 MCG/2 ML SDV ONE (19:05)
[2025-04-22] MEDS ORDERED: Dexamethasone 4 MG/ML 5 ML MDV ONE (19:05)
[2025-04-22] MEDS ORDERED: Succinylcholine 200 MG/10 ML MDV ONE (19:07)
[2025-04-22] MEDS ORDERED: Sodium Chloride 0.9% 100 ML ONE (19:08)
[2025-04-22] MEDS ORDERED: HYDROmorphone 0.5 MG/0.5 ML Syringe ONE ×2 (19:56→20:38)
[2025-04-22] MEDS ORDERED: propofoL 1,000 MG/100 ML 100 ML ONE (20:01)
[2025-04-22] MEDS: Lactated Ringers 1,000 ML IV ONE (20:02)
[2025-04-22] MEDS ORDERED: cefOXitin 2 GM Vial ONE (20:04)
[2025-04-22] MEDS ORDERED: Esmolol 100 MG/10 ML SDV ONE (20:11)
[2025-04-22] MEDS ORDERED: propofoL 500 MG/50 ML 50 ML ONE (20:12)
[2025-04-22] MEDS ORDERED: Lactated Ringers 1,000 ML ONE (20:13)
[2025-04-22] MEDS: Heparin Sodium 5,000 Units/ML Vial SUBCUT ONE (20:14)
[2025-04-22] MEDS ORDERED: Metoprolol Tartrate 5 MG/5 ML SDV ONE (20:23)
[2025-04-22] MEDS ORDERED: Sugammadex Sodium 200 MG/2 ML VIAL IV ONE (20:28)
[2025-04-22] MEDS ORDERED: Morphine 2 MG/ML SYRINGE IVPUSH PRN (21:42)
[2025-04-22] MEDS ORDERED: Morphine 4 MG/ML Syringe IVPUSH PRN ×3 (21:43→21:45)
[2025-04-22] MEDS ORDERED: HYDROmorphone 0.5 MG/0.5 ML Syringe IVPUSH PRN (22:02)
[2025-04-22] MEDS ORDERED: Ondansetron 4 MG/2 ML SDV IVPUSH PRN (22:02)
[2025-04-22] MEDS ORDERED: fentaNYL 100 MCG/2 ML SDV IVPUSH PRN (22:02)
[2025-04-22] MEDS ORDERED: Sodium Chloride 0.9% 10 ML Syringe FLUSH PRN (22:02)
[2025-04-22] MEDS ORDERED: Lactated Ringers 1,000 ML IV SCH (22:15)
[2025-04-22] MEDS: Ketorolac 30 MG/ML SDV IVPUSH SCH (23:53)
[2025-04-22] MEDS: Lactated Ringers 1,000 ML IV SCH (23:59)
[2025-04-23] MEDS: Piperacillin/Tazobactam 4.5 GM in Sodium Chloride 0.9% 100 ML IV ONE (00:03)
[2025-04-23] MEDS: cefOXitin 2 GM in Sodium Chloride 0.9% 50 ML IV ONE (00:07)
[2025-04-23] MEDS ORDERED: Piperacillin/Tazobactam 4.5 GM in Sodium Chloride 0.9% 100 ML IV SCH (02:00)
[2025-04-23] MEDS: Heparin Sodium 5,000 Units/ML Vial SUBCUT SCH (04:25)
[2025-04-23] MEDS: Piperacillin/Tazobactam 4.5 GM in Sodium Chloride 0.9% 100 ML IV SCH (04:25)
[2025-04-23] MEDS: Lactated Ringers 1,000 ML IV SCH (04:30)
[2025-04-23 05:52] LABS: HEMATOCRIT 29.4 % (42.0-52.0); IMMATURE GRAN ABSOLUTE AUTO 0.03 K/mm3 (0.00-0.05); IMMATURE GRAN PERCENT AUTO 0.3 % (0.0-0.4); LYMPHOCYTES ABSOLUTE AUTO 0.4 K/mm3 (1.0-4.8); LYMPHOCYTES PERCENT AUTO 4.4 % (24.0-44.0); MEAN CORPUSCULAR HEMOGLOBIN 32.3 pg (28.0-32.0); MEAN CORPUSCULAR HGB CONC 32.7 g/dl (32.0-36.0); MEAN PLATELET VOLUME 9.4 fl (9.4-12.4); MONOCYTES ABSOLUTE AUTO 0.6 K/mm3 (0.0-0.8); MONOCYTES PERCENT AUTO 6.1 % (0.0-8.0); NEUTROPHILS ABSOLUTE AUTO 8.1 K/mm3 (1.8-7.7); NEUTROPHILS PERCENT AUTO 89.2 % (41.0-71.0); PLATELET COUNT,PLT 204 K/mm3 (150-400); RED BLOOD CELL COUNT 2.97 M/mm3 (4.52-5.90); WHITE BLOOD CELL COUNT,WBC 9.06 K/mm3 (3.9-11.3)
[2025-04-23 05:54] LABS: HEMOGLOBIN 9.6 gm/dl (14.0-18.0)
[2025-04-23 06:07] LABS: ANION GAP 12.4 (5-15); BUN/CREATININE RATIO 17.5 (14-18); CALCIUM 9.3 mg/dL (8.5-10.1); CREATININE 0.8 mg/dL (0.7-1.3); EST CRCL DRUG DOSING (CG) 131.1 mL/min; POTASSIUM,K 4.4 mEq/L (3.5-5.1)
[2025-04-23] MEDS ORDERED: Acetaminophen/Codeine 300-30 MG Tab PO PRN (06:33)
[2025-04-23] MEDS: Sodium Chloride 0.9% 10 ML Syringe FLUSH SCH (10:15)
[2025-04-23] MEDS: Sodium Chloride 0.9% 1,000 ML IV SCH (13:43)
== END 2025-04-24 08:35 | disposition home or self-care (01) ==
LOC: JD.ED 07:34 → JD.SDS 19:23 → JD.MS 21:38
PROVIDERS: ADMIT Surgery; ATTEND Surgery
DX: K35.33 Acute appendicitis with perforation, localized peritonitis, and gangrene, with abscess (principal); I10 Essential (primary) hypertension; E78.00 Pure hypercholesterolemia, unspecified; Z79.899 Other long term (current) drug therapy
CPT/HCPCS: 36415; 44970; 71260; 74177; 80048; 80053; 81003; 83690; 83735; 84484; 85025; 93005; 94760; 94761; 96361; 96372; 96374; 96375; 96376; 99285; A9270; J0330; J0694; J1100; J1596; J1644; J1805; J1885; J2003; J2250; J2405; J2543; J2704; J2795; J3010; J3490; J7030; J7120; Q9967; 00840; 64999; 99140